=== PATIENT | male | born 1950 | race Caucasian/White ===

== ENCOUNTER 2018-07-06 07:07 | Inpatient (IN) | payer MEDICARE | END 2018-07-14 17:09 | disposition home or self-care (01) | LOC: EDH 07:07 → 2DH 07-12 10:14 → EDHIP 08:45 → 4CH 17:56 | DX: I21.4 Non-ST elevation (NSTEMI) myocardial infarction (principal); J18.9 Pneumonia, unspecified organism; I50.21 Acute systolic (congestive) heart failure; J44.0 Chronic obstructive pulmonary disease with (acute) lower respiratory infection; I48.92 Unspecified atrial flutter; I48.3 Typical atrial flutter; I48.4 Atypical atrial flutter; I11.0 Hypertensive heart disease with heart failure; E78.5 Hyperlipidemia, unspecified ==